=== PATIENT | female | born 1995 | race Two or more races ===

== ENCOUNTER 2018-04-16 08:32 | Day surgery (SDC) | payer OTHER ==
[~2018-04-16 08:32] MED LIST: AZELASTINE137 MCG/0. IH; FLOVENT DISKUS50 MCG IH; FOLIC ACID1 MG PO; METROTREXATE PO; PREDNISONE PO
== END 2018-04-16 15:35 | disposition home or self-care (01) ==
LOC: CIR.AMB 08:32
DX: M65.831 Other synovitis and tenosynovitis, right forearm (principal)

== ENCOUNTER 2022-01-27 22:00 | Emergency (ER) | payer OTHER ==
[~2022-01-27] VITALS: Ht 152.4 cm; Wt 53.1 kg
== END 2022-01-28 02:17 ==
LOC: ER 22:00
DX: R55 Syncope and collapse (principal)